=== PATIENT | male | born 1985 | race Caucasian/White ===

== ENCOUNTER 2018-02-17 16:23 | Emergency (ER) | payer BC, OTHER ==
[2018-02-17] MEDS ORDERED: Ketorolac 60 MG/2 ML SDV IM ONE (16:57)
--- NOTE | 2018-02-17 17:02 | EDM.PDOC ---
ED HPI GENERAL MEDICAL PROBLEM - General Chief Complaint: Back Pain or Injury Stated Complaint: PT HAS BACK PAIN Time Seen by Provider: 02/17/18 16:57 Source of Information: Reports: Patient History Limitations: Reports: No Limitations - History of Present Illness INITIAL COMMENTS - FREE TEXT/NARRATIVE: HISTORY AND PHYSICAL: [] 32-year-old male presenting with lower back pain and left side History of Present Illness: []Patient was bending over washing his truck and felt pain as he stood up Review of Systems: As per history of present illness and below otherwise all systems reviewed and negative. Past medical history: As per history of present illness and as reviewed below otherwise noncontributory. Surgical history: As per history of present illness and as reviewed below otherwise noncontributory. Social history: No reported history of drug or alcohol abuse. Family history: As per history of present illness and as reviewed below otherwise noncontributory. Physical exam: Alert and oriented answering questions appropriately in full sentences without any shortness of breath HEENT: Atraumatic, normocehpalic, pupils reactive, negative for conjunctival pallor or scleral icterus, mucous membranes moist, throat clear, neck supple, nontender, trachea midline. Lungs: Clear to auscultation, breath sounds equal bilaterally, chest non tender. Heart: S1S2, regular, negative for clicks, rubs, or JVD. Abdomen: Soft, nondistended, nontender. Negative for masses or hepatossplenmegaly. Negative for costovertebral tenderness. Pelvis: Stable nontender. Back: Tender to the musculoskeletal area left side tender to vertebral areas Genitourinary: Deferred. Rectal: Deferred Extremities: Atraumatic, negative for cords or calf pain. Neurovascular unremarkable. Neuro: Awake, alert, oriented. Cranial nerves II through XII unremarkable. Cerebellum unremarkable. Motor and sensory unremarkable throughout. Exam nonfocal. Diagnostics: [] Therapeutics: []Toradol 60 IM Impression: []Low back pain Plan: []Discharged to home Prednisone Follow-up with your primary care Ice on and off every 20 minutes for the first 24 hours Definitive disposition and diagnosis as appropriate pending reevaluation and review of above. Onset: Today, Sudden Duration: Hour(s):, Getting Worse Location: Reports: Back lower left back Pain Score (Numeric/FACES): 5 - Related Data Allergies Allergy/AdvReac Type Severity Reaction Status Date / Time No Known Allergies Allergy Verified 02/17/18 16:44 Home Meds: Home Meds methylPREDNISolone [Medrol] 4 mg PO ASDIRECTED #1 dosepk 02/17/18 [Rx] Past Medical History - Past Health History Medical/Surgical History: Denies Medical/Surgical History Psychiatric History: Reports: Other (See Below) Other Psychiatric History: "anger issues" Social & Family History - Family History Family Medical History: Noncontributory - Tobacco Use Smoking Status *Q: Never Smoker - Caffeine Use Caffeine Use: Reports: Coffee, Soda, Tea - Recreational Drug Use Recreational Drug Use: No ED ROS GENERAL - Review of Systems Review Of Systems: ROS reveals no pertinent complaints other than HPI. ED EXAM,LOWER BACK PAIN/INJURY - Physical Exam Exam: See Below (See dictation) Course - Vital Signs Last Recorded V/S: Last Vital Signs Temp 37.2 C 02/17/18 16:42 Pulse 88 02/17/18 16:42 Resp 16 02/17/18 16:42 BP 157/84 H 02/17/18 16:42 Pulse Ox 95 02/17/18 16:42 - Orders/Labs/Meds Orders: Active Orders 24 hr Category Date Time Status Ketorolac [Toradol] Med 02/17/18 16:57 Once 60 mg IM ONETIME ONE Medication Orders Ketorolac Tromethamine (Toradol) 60 mg IM ONETIME ONE Stop: 02/17/18 16:58 Meds: Medications Generic Name Dose Route Start Last Admin Trade Name Freq PRN Reason Stop Dose Admin Ketorolac Tromethamine 60 mg 02/17/18 16:57 Toradol IM 02/17/18 16:58 ONETIME ONE Departure - Departure Time of Disposition: 16:59 Disposition: Home, Self-Care 01 Condition: Good Clinical Impression: Low back pain with left-sided sciatica Qualifiers: Chronicity: acute Back pain laterality: left Qualified Code(s): M54.42 - Lumbago with sciatica, left side - Discharge Information Prescriptions: methylPREDNISolone [Medrol] 4 mg PO ASDIRECTED #1 dosepk Instructions: Muscle Strain, [id number], Back Pain, Adult Additional Instructions: The following information is given to patients seen in the emergency department who are being discharged to home. This information is to outline your options for follow-up care. We provide all patients seen in our emergency department with a follow-up referral. The need for follow-up, as well as the timing and circumstances, are variable depending upon the specifics of your emergency department visit. If you don't have a primary care physician on staff, we will provide you with a referral. We always advise you to contact your personal physician following an emergency department visit to inform them of the circumstance of the visit and for follow-up with them and/or the need for any referrals to a consulting specialist. The emergency department will also refer you to a specialist when appropriate. This referral assures that you have the opportunity for followup care with a specialist. All of these measure are taken in an effort to provide you with optimal care, which includes your followup. Under all circumstances we always encourage you to contact your private physician who remains a resource for coordinating your care. When calling for followup care, please make the office aware that this follow-up is from your recent emergency room visit. If for any reason you are refused follow-up, please contact the [facility] emergency department at and asked to speak to the emergency department charge nurse. The left-sided back pain you have his musculoskeletal Medrol Dosepak (a steroid) has been ordered Ice off and on every 20 minutes for the first 24 hours Follow-up with your primary care provider Return to emergency room as discussed - My Orders Last 24 Hours: My Active Orders 02/17/18 16:57 Ketorolac [Toradol] 60 mg IM ONETIME ONE - Assessment/Plan Last 24 Hours: My Active Orders 02/17/18 16:57 Ketorolac [Toradol] 60 mg IM ONETIME ONE
[2018-02-17 18:24] VITALS: BP 157/84
== END 2018-02-17 18:21 | disposition home or self-care (01) ==
LOC: MW.ED 16:23
DX: M54.42 Lumbago with sciatica, left side (principal)
CPT/HCPCS: 96372; 99283; J1885

== ENCOUNTER 2019-09-07 10:47 | Emergency (ER) | payer OTHER ==
[2019-09-07] MEDS ORDERED: Tetracaine HCl/PF 0.5% 4 ML Bottle ONE (11:09)
[2019-09-07] MEDS ORDERED: Tetracaine HCl/PF 0.5% 4 ML Bottle EYEBOTH ONE (11:10)
--- NOTE | 2019-09-07 11:10 | EDM.PDOC ---
ED HPI GENERAL MEDICAL PROBLEM - General Chief Complaint: Eye Problems Stated Complaint: RIGHT EYE SWOLLEN Time Seen by Provider: 09/07/19 11:05 Source of Information: Reports: Patient History Limitations: Reports: No Limitations - History of Present Illness INITIAL COMMENTS - FREE TEXT/NARRATIVE: HISTORY AND PHYSICAL: History of present illness: Patient is a 34-year-old male presents to the ED with complaint right eye pain. He states it started yesterday, eye is red and painful with tearing. He states he does wear contacts but does not sleep in them. He is not currently wearing his contacts. He denies foreign body sensation. Review of systems: As per history of present illness and below otherwise all systems reviewed and negative. Past medical history: As per history of present illness and as reviewed below otherwise noncontributory. Surgical history: As per history of present illness and as reviewed below otherwise noncontributory. Social history: No reported history of drug or alcohol abuse. Family history: As per history of present illness and as reviewed below otherwise noncontributory. Physical exam: General: Patient sitting comfortably in no acute distress and nontoxic appearing HEENT: Right eye is injected with tearing. No FB on lid eversion. There is a small superficial corneal abrasion noted on [place] exam. Atraumatic, normocephalic, pupils reactive, negative for conjunctival pallor or scleral icterus, mucous membranes moist, throat clear, neck supple, nontender, trachea midline. No meningeal signs. Lungs: Clear to auscultation, breath sounds equal bilaterally, chest nontender. Heart: S1S2, regular, negative for clicks, rubs, or overt murmur. Abdomen: Soft, nondistended, nontender. Negative for masses or hepatosplenomegaly. Negative for costovertebral tenderness. No rigidity, rebound , guarding. Pelvis: Stable nontender. Genitourinary: Deferred. Rectal: Deferred. Extremities: Atraumatic, negative for cords or calf pain. Neurovascular unremarkable. Neuro: Awake, alert, oriented. Cranial nerves II through XII unremarkable. Cerebellum unremarkable. Motor and sensory unremarkable throughout. Exam nonfocal. Notes: Diagnostics: [] Therapeutics: [] Prescriptions: polytrim ophthalmic Impression: Corneal abrasion Definitive disposition and diagnosis as appropriate pending reevaluation and review of above. - Related Data Allergies Allergy/AdvReac Type Severity Reaction Status Date / Time No Known Allergies Allergy Verified 09/07/19 10:58 Home Meds: Home Meds Polymyxin B/Trimethoprim [PolyTrim Ophth Soln] 1 drop OP TID #1 bottle 09/07/19 [Rx] Past Medical History - Past Health History Medical/Surgical History: Denies Medical/Surgical History HEENT History: Reports: None Cardiovascular History: Reports: None Respiratory History: Reports: None Gastrointestinal History: Reports: None Genitourinary History: Reports: None Musculoskeletal History: Reports: None Neurological History: Reports: None Psychiatric History: Reports: Other (See Below) Other Psychiatric History: "anger issues" Endocrine/Metabolic History: Reports: None Hematologic History: Reports: None Immunologic History: Reports: None Oncologic (Cancer) History: Reports: None Dermatologic History: Reports: None - Past Surgical History Head Surgeries/Procedures: Reports: None HEENT Surgical History: Reports: None Cardiovascular Surgical History: Reports: None Respiratory Surgical History: Reports: None GI Surgical History: Reports: None Male Surgical History: Reports: None Endocrine Surgical History: Reports: None Neurological Surgical History: Reports: None Musculoskeletal Surgical History: Reports: None Oncologic Surgical History: Reports: None Dermatological Surgical History: Reports: None Social & Family History - Family History Family Medical History: Noncontributory - Tobacco Use Smoking Status *Q: Never Smoker Second Hand Smoke Exposure: No - Caffeine Use Caffeine Use: Reports: Other - Recreational Drug Use Recreational Drug Use: No ED ROS GENERAL - Review of Systems Review Of Systems: ROS reveals no pertinent complaints other than HPI. ED EXAM GENERAL W FULL EYE - Physical Exam Exam: See Below (see dictation) Course - Vital Signs Last Recorded V/S: Last Vital Signs Temp 97.1 F 09/07/19 10:58 Pulse 101 H 09/07/19 10:58 Resp 18 09/07/19 10:58 BP 159/89 H 09/07/19 10:58 Pulse Ox 96 09/07/19 10:58 - Orders/Labs/Meds Meds: Medications Discontinued Medications Generic Name Dose Route Start Last Admin Trade Name Freq PRN Reason Stop Dose Admin Tetracaine HCl 1 ml 09/07/19 11:10 09/07/19 11:23 Tetracaine 0.5% Steri-Unit Rosita EYEBOTH 09/07/19 11:11 1 ml ASDIRECTED ONE Administration Tetracaine HCl Confirm 09/07/19 11:09 09/07/19 11:22 Tetracaine 0.5% Steri-Unit Rosita Administered 09/07/19 11:10 Not Given Dose 4 ml .ROUTE .STK-MED ONE Departure - Departure Time of Disposition: 11:26 Disposition: Home, Self-Care 01 Condition: Good Clinical Impression: Corneal abrasion - Discharge Information Forms: ED Department Discharge Additional Instructions: The following information is given to patients seen in the emergency department who are being discharged to home. This information is to outline your options for follow-up care. We provide all patients seen in our emergency department with a follow-up referral. The need for follow-up, as well as the timing and circumstances, are variable depending upon the specifics of your emergency department visit. If you don't have a primary care physician on staff, we will provide you with a referral. We always advise you to contact your personal physician following an emergency department visit to inform them of the circumstance of the visit and for follow-up with them and/or the need for any referrals to a consulting specialist. The emergency department will also refer you to a specialist when appropriate. This referral assures that you have the opportunity for follow-up care with a specialist. All of these measure are taken in an effort to provide you with optimal care, which includes your follow-up. Under all circumstances we always encourage you to contact your private physician who remains a resource for coordinating your care. When calling for follow-up care, please make the office aware that this follow-up is from your recent emergency room visit. If for any reason you are refused follow-up, please contact the [facility] Emergency Department at and asked to speak to the emergency department charge nurse. [facility] [address] [place] [address] Use drops as instructed Follow-up with ophthalmology, please call the number provided to schedule an appointment Return to ED as needed as discussed
[2019-09-07 11:41] VITALS: BP 147/83; PULSE 98
== END 2019-09-07 11:42 | disposition home or self-care (01) ==
LOC: MW.ED 10:47
DX: S05.01XA Injury of conjunctiva and corneal abrasion without foreign body, right eye, initial encounter (principal); X58.XXXA Exposure to other specified factors, initial encounter
CPT/HCPCS: 99282

== ENCOUNTER 2019-09-24 04:18 | Emergency (ER) | payer OTHER ==
[2019-09-24] MEDS ORDERED: Ketorolac 60 MG/2 ML SDV ONE (04:28)
[2019-09-24] MEDS ORDERED: Acetaminophen/HYDROcodone 325-10 MG Tab ONE (04:29)
[2019-09-24] MEDS ORDERED: Ketorolac 60 MG/2 ML SDV IM ONE (05:13)
[2019-09-24] MEDS ORDERED: Acetaminophen/HYDROcodone 325-10 MG Tab PO ONE (05:14)
[2019-09-24 06:49] VITALS: BP 138/88; PULSE 76
--- NOTE | 2019-09-24 10:19 | CT ---
EXAM DATE: 09/24/19 PATIENT'S AGE: 34 Patient: CUBA QUINTANILLA Facility: [facility] Site : [id number] Study: CT-Spine Lumbar -09/24/2019 4:52:18 AM Ordering Physician: Rich Gonzalez Final Report: INDICATION: Lumbar pain TECHNIQUE: CT lumbar spine without contrast. COMPARISON: None FINDINGS: Vertebrae: Alignment is normal. No evidence of acute fracture. L3 limbus vertebra. 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 Slight bilobed annular prominence L5-S1 with minimal bilateral foraminal stenosis. Extraspinal findings: Nonobstructing 2 millimeter stone within the upper pole of the right kidney. IMPRESSION: 1. No evidence of acute fracture. 2. 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 3. 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 Please note that all CT scans at this facility use dose modulation, iterative reconstruction, and/or weight-based dosing when appropriate to reduce radiation dose to as low as reasonably achievable. Dictated by Rigoberto Hoffman MD @ Sep 24 2019 4:56AM Signed by: Rigoberto Hoffman MD @09/24/2019 5:02:54 AM (Electronic Signature) Report Signed by Proxy. ROCKEFELLER W[facility] DEMONSTRATION HOSPITALYudy
== END 2019-09-24 06:40 | disposition home or self-care (01) ==
LOC: MW.ED 04:18
DX: M54.5 Low back pain (principal)
CPT/HCPCS: 72131; 96372; 99284; A9270; J1885

== ENCOUNTER 2019-10-13 16:49 | Emergency (ER) | payer OTHER ==
[2019-10-13] MEDS ORDERED: Albuterol/Ipratropium 3.0-0.5 MG/3 ML Neb Soln NEB ONE (17:02)
--- NOTE | 2019-10-13 17:08 | EDM.PDOC ---
ED HPI GENERAL MEDICAL PROBLEM - General Stated Complaint: COUGH Time Seen by Provider: 10/13/19 17:02 Source of Information: Reports: Patient - History of Present Illness INITIAL COMMENTS - FREE TEXT/NARRATIVE: HISTORY AND PHYSICAL: History of present illness: [patient has had sorethroat increasing in severity over last 5 days no muffled voice, drooling, or terissmus ] Review of systems: As per history of present illness and below otherwise all systems reviewed and negative. Past medical history: As per history of present illness and as reviewed below otherwise noncontributory. Surgical history: As per history of present illness and as reviewed below otherwise noncontributory. Social history: No reported history of drug or alcohol abuse. Family history: As per history of present illness and as reviewed below otherwise noncontributory. Physical exam: HEENT: Atraumatic, normocephalic, pupils reactive, negative for conjunctival pallor or scleral icterus, mucous membranes moist, throat clear, neck supple, nontender, trachea midline.mod erythema, white patchy exudate no meningeal signs Lungs: Clear to auscultation, breath sounds equal bilaterally, chest nontender. Heart: S1S2, regular, negative for clicks, rubs, or JVD. Abdomen: Soft, nondistended, nontender. Negative for masses or hepatosplenomegaly. Negative for costovertebral tenderness. Pelvis: Stable nontender. Genitourinary: Deferred. Rectal: Deferred. Extremities: Atraumatic, negative for cords or calf pain. Neurovascular unremarkable. Neuro: Awake, alert, oriented. Cranial nerves II through XII unremarkable. Cerebellum unremarkable. Motor and sensory unremarkable throughout. Exam nonfocal. Diagnostics: [flu strep ] Therapeutics: [zpak 500mg prednisone 40mg x 3 days 1 g rocephine im ] Impression: [pharyngitis ] Definitive disposition and diagnosis as appropriate pending reevaluation and review of above. Throat Pain Score (Numeric/FACES): 6 - Related Data Allergies Allergy/AdvReac Type Severity Reaction Status Date / Time No Known Allergies Allergy Verified 10/13/19 17:13 Home Meds: Home Meds . [No Known Home Meds] 09/24/19 [History] Past Medical History - Past Health History Medical/Surgical History: Denies Medical/Surgical History HEENT History: Reports: None Cardiovascular History: Reports: None Respiratory History: Reports: None Gastrointestinal History: Reports: None Genitourinary History: Reports: None Musculoskeletal History: Reports: None Neurological History: Reports: None Psychiatric History: Reports: None Other Psychiatric History: "anger issues" Endocrine/Metabolic History: Reports: None Insulin Pump Model and Pizza Delivery: None Hematologic History: Reports: None Immunologic History: Reports: None Oncologic (Cancer) History: Reports: None Dermatologic History: Reports: None - Infectious Disease History Infectious Disease History: Reports: None - Past Surgical History Head Surgeries/Procedures: Reports: None HEENT Surgical History: Reports: None Cardiovascular Surgical History: Reports: None Respiratory Surgical History: Reports: None GI Surgical History: Reports: None Male Surgical History: Reports: None Endocrine Surgical History: Reports: None Neurological Surgical History: Reports: None Musculoskeletal Surgical History: Reports: None Oncologic Surgical History: Reports: None Dermatological Surgical History: Reports: None Social & Family History - Family History Family Medical History: Noncontributory - Caffeine Use Caffeine Use: Reports: None ED ROS GENERAL - Review of Systems Review Of Systems: See Below ED EXAM, GENERAL - Physical Exam Exam: See Below Course - Vital Signs Last Recorded V/S: Last Vital Signs Temp 98.1 F 10/13/19 17:14 Pulse 97 10/13/19 17:14 Resp 16 10/13/19 17:14 BP 147/91 H 10/13/19 17:14 Pulse Ox 96 10/13/19 17:14 - Orders/Labs/Meds Orders: Active Orders 24 hr Category Date Time Status RT Aerosol Therapy [RC] ASDIRECTED Care 10/13/19 17:02 Active CULTURE STREP A CONFIRMATION [] Stat Lab 10/13/19 17:17 Results STREP SCRN A RAPID W CULT CONF [] Stat Lab 10/13/19 17:17 Results cefTRIAXone [Rocephin] Med 10/13/19 17:46 Once 1 gm IM ONETIME ONE Meds: Medications Discontinued Medications Generic Name Dose Route Start Last Admin Trade Name Freq PRN Reason Stop Dose Admin Albuterol/Ipratropium 3 ml 10/13/19 17:02 Duoneb 3.0-0.5 Mg/3 Ml NEB 10/13/19 17:03 ONETIME ONE Departure - Departure Time of Disposition: 17:48 Disposition: Home, Self-Care 01 Condition: Good Clinical Impression: Pharyngitis - Discharge Information Referrals: PCP,None [Primary Care Provider] - Additional Instructions: The following information is given to patients seen in the emergency department who are being discharged to home. This information is to outline your options for follow-up care. We provide all patients seen in our emergency department with a follow-up referral. The need for follow-up, as well as the timing and circumstances, are variable depending upon the specifics of your emergency department visit. If you don't have a primary care physician on staff, we will provide you with a referral. We always advise you to contact your personal physician following an emergency department visit to inform them of the circumstance of the visit and for follow-up with them and/or the need for any referrals to a consulting specialist. The emergency department will also refer you to a specialist when appropriate. This referral assures that you have the opportunity for follow-up care with a specialist. All of these measure are taken in an effort to provide you with optimal care, which includes your follow-up. Under all circumstances we always encourage you to contact your private physician who remains a resource for coordinating your care. When calling for follow-up care, please make the office aware that this follow-up is from your recent emergency room visit. If for any reason you are refused follow-up, please contact the [facility] emergency department at and asked to speak to the emergency department charge nurse. Sepsis Event Note - Focused Exam Vital Signs: Vital Signs Temp Pulse Resp BP Pulse Ox 10/13/19 17:14 98.1 F 97 16 147/91 H 96 Date Exam was Performed: 10/13/19 Time Exam was Performed: 17:47 - My Orders Last 24 Hours: My Active Orders 10/13/19 17:02 RT Aerosol Therapy [RC] ASDIRECTED 10/13/19 17:17 CULTURE STREP A CONFIRMATION [RM] Stat STREP SCRN A RAPID W CULT CONF [RM] Stat 10/13/19 17:46 cefTRIAXone [Rocephin] 1 gm IM ONETIME ONE - Assessment/Plan Last 24 Hours: My Active Orders 10/13/19 17:02 RT Aerosol Therapy [RC] ASDIRECTED 10/13/19 17:17 CULTURE STREP A CONFIRMATION [RM] Stat STREP SCRN A RAPID W CULT CONF [RM] Stat 10/13/19 17:46 cefTRIAXone [Rocephin] 1 gm IM ONETIME ONE
[2019-10-13] MEDS ORDERED: cefTRIAXone 1 GM Vial IM ONE (17:46)
[2019-10-13 18:25] VITALS: BP 150/87; PULSE 90
== END 2019-10-13 18:25 | disposition home or self-care (01) ==
LOC: MW.ED 16:49
DX: J02.9 Acute pharyngitis, unspecified (principal)
CPT/HCPCS: 87081; 87804; 87880; 96372; 99284; J0696; J2001

== ENCOUNTER 2019-12-31 19:06 | Emergency (ER) | payer OTHER ==
--- NOTE | 2019-12-31 19:27 | EDM.PDOC ---
ED HPI GENERAL MEDICAL PROBLEM - General Chief Complaint: Back Pain or Injury Stated Complaint: BACK PAIN Time Seen by Provider: 12/31/19 19:26 Source of Information: Reports: Patient, Significant Other - History of Present Illness INITIAL COMMENTS - FREE TEXT/NARRATIVE: The patient is a 34-year-old male who presents to the ER secondary to left lower back pain. 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 The patient does not recall any specific incidents in which he hurt his back but his left lower lumbar paraspinal muscles just above the PSIS has been hurting him and it is worse with certain movements. There is no radiculopathy. No leg weakness, no trouble with bowels or bladder. No flank pain, no abdominal pain, no testicular pain or any other acute complaints. The patient states that he came to the ER because the last time he had this pain a couple of years ago, someone told him that his "spinal cord might be leaking" and he wants to make sure that his spinal cord is not leaking. Back Pain Score (Numeric/FACES): 0 - Related Data Allergies Allergy/AdvReac Type Severity Reaction Status Date / Time No Known Allergies Allergy Verified 10/13/19 17:13 Home Meds: Home Meds . [No Known Home Meds] 09/24/19 [History] Past Medical History - Past Health History Medical/Surgical History: Denies Medical/Surgical History HEENT History: Reports: None Cardiovascular History: Reports: None Respiratory History: Reports: None Gastrointestinal History: Reports: None Genitourinary History: Reports: None Musculoskeletal History: Reports: None Neurological History: Reports: None Psychiatric History: Reports: None Other Psychiatric History: "anger issues" Endocrine/Metabolic History: Reports: None Insulin Pump Model and Electric Motor Winder: None Hematologic History: Reports: None Immunologic History: Reports: None Oncologic (Cancer) History: Reports: None Dermatologic History: Reports: None - Infectious Disease History Infectious Disease History: Reports: None - Past Surgical History Head Surgeries/Procedures: Reports: None HEENT Surgical History: Reports: None Cardiovascular Surgical History: Reports: None Respiratory Surgical History: Reports: None GI Surgical History: Reports: None Male Surgical History: Reports: None Endocrine Surgical History: Reports: None Neurological Surgical History: Reports: None Musculoskeletal Surgical History: Reports: None Oncologic Surgical History: Reports: None Dermatological Surgical History: Reports: None Social & Family History - Family History Family Medical History: Noncontributory - Tobacco Use Smoking Status *Q: Former Smoker Used Tobacco, but Quit: Yes Month/Year Tobacco Last Used: 2009 - Caffeine Use Caffeine Use: Reports: Other Other Caffeine Use: preworkout - Recreational Drug Use Recreational Drug Use: No ED ROS GENERAL - Review of Systems Review Of Systems: See Below (Positive for left lower back pain, negative for flank pain, negative fevers, negative chills, negative for dysuria, negative urinary frequency, negative for leg weakness, all other Positives and pertinent negatives as per HPI. All other pertinent systems were reviewed and are negative ) ED EXAM,LOWER BACK PAIN/INJURY - Physical Exam Exam: See Below Text/Narrative:: Constitutional: No acute distress, Non-toxic appearance, looks mildly uncomfortable with movement. HEENT: Normocephalic, Atraumatic, EOMI Neck: Normal range of motion, No stridor, trachea midline Respiratory: No respiratory distress, No tachypnea Cardiovascular: Deferred Gastrointestinal: Deferred Genital / Urinary: Deferred Musculoskeletal: All four extremities present and atraumatic Back: FROM painful range of motion with very reproducible tenderness in the left lower lumbar paraspinal muscles just above the PSIS, negative for flank pain Integument: Warm, Dry, Color is ethnicity appropriate, No rash. Neuro: Alert, Awake, oriented x3, cranial nerves grossly intact, motor strength equal in the bilateral lower extremities at 5/5, no focal deficits noted Psych: Affect, Judgement, mood normal Course - Vital Signs Text/Narrative:: History and exam are consistent with classic musculoskeletal paraspinal lumbar back pain without complicating factors. I explained to the patient and his spouse in detail about this and that his spinal cord was not "leaking". He is comfortable with my diagnosis and is comfortable with no work-up. Stable for discharge. Last Recorded V/S: Last Vital Signs Temp 37.2 C 12/31/19 19:20 Pulse 105 H 12/31/19 19:20 Resp 17 12/31/19 19:20 BP 184/94 H 12/31/19 19:20 Pulse Ox 96 12/31/19 19:20 Departure - Departure Time of Disposition: 19:26 Disposition: Home, Self-Care 01 Condition: Good Clinical Impression: Low back strain - Discharge Information *PRESCRIPTION DRUG MONITORING PROGRAM REVIEWED*: Not Applicable *COPY OF PRESCRIPTION DRUG MONITORING REPORT IN PATIENT MARY: Not Applicable Instructions: Low Back Strain Referrals: PCP,None [Primary Care Provider] - Forms: ED Department Discharge Additional Instructions: BACK PAIN Back pain is very common. The pain often gets better over time. The cause of back pain is usually not dangerous. Most people can learn to manage their back pain on their own. Back pain can last up to 4-6 weeks and still be considered normal. HOME CARE Watch your back pain for any changes. The following actions may help to lessen any pain you are feeling: Stay active. Start with short walks on flat ground if you can. Try to walk farther each day. Carefully exercise regularly, and as tolerated. Exercise helps your back heal faster. It also helps avoid future injury by keeping your muscles strong and flexible. Do not sit, drive, or printed circuit boards inspector one place for more than 30 minutes. Do not stay in bed for prolonged periods of time. Resting more than 1-2 days can slow down your recovery. Be careful when you bend or lift an object. Use good form when lifting: ? Bend at your knees. ? Keep the object close to your body. ? Do not twist. Sleep on a firm mattress. Lie on your side, and bend your knees. If you lie on your back, put a pillow under your knees. Ibuprofen 800 mg and Tylenol 1000 mg may be taken together every 6 hours as needed for pain Ice often helps for the first 24 hours, after that warm heat usually works better Maintain a healthy weight. Extra weight puts stress on your back. Follow-up with a primary care provider as instructed Sepsis Event Note - Evaluation Sepsis Screening Result: No Definite Risk - Focused Exam Vital Signs: Vital Signs Temp Pulse Resp BP Pulse Ox 12/31/19 19:20 37.2 C 105 H 17 184/94 H 96 Date Exam was Performed: 01/01/20 Time Exam was Performed: 06:45
== END 2019-12-31 19:35 | disposition home or self-care (01) ==
LOC: MW.ED 19:06
CPT/HCPCS: 99283